=== PATIENT | male | born 1960 ===

== ENCOUNTER 2023-11-10 08:44 | Day surgery (SDC) | payer OTHER ==
[~2023-11-10 08:44] MED LIST: LOSARTAN POTAS100 MG
[2023-11-10] MEDS ORDERED: CEFAZOLIN SODIUM 1,000 MG VIAL ONE (10:20)
[2023-11-10] MEDS ORDERED: TYLENOL ARTHRI650 MG PO (11:40)
[2023-11-10] MEDS ORDERED: TRAMADOL HCL50 MG PO (11:40)
[2023-11-10] MEDS ORDERED: KETO10TA2 PO (11:40)
[2023-11-10] MEDS ORDERED: MIRALAX17 GM PO (11:40)
[2023-11-10] MEDS ORDERED: SUGAMMADEX SODIUM 200 MG/2 ML VIAL IV ONE (13:38)
[2023-11-10] MEDS ORDERED: KETOROLAC TROMETHAMINE 30 MG VIAL IV STA (13:41)
[2023-11-10] MEDS ORDERED: KETOROLAC TROMETHAMINE 30 MG VIAL ONE (13:48)
[2023-11-10] MEDS ORDERED: MORPHINE SULFATE 4 MG/ML VIAL IV ONE (14:25)
== END 2023-11-10 16:10 | disposition home or self-care (01) ==
LOC: CIR.AMB 08:44
PROVIDERS: ATTEND Surgery
DX: K40.91 Unilateral inguinal hernia, without obstruction or gangrene, recurrent (principal); K42.0 Umbilical hernia with obstruction, without gangrene
CPT/HCPCS: 49651; 49592; C1781